=== PATIENT | male | born 1965 ===

== ENCOUNTER 2022-07-13 09:09 | Outpatient (CLI) | payer OTHER | END 2022-07-13 09:15 | disposition home or self-care (01) | LOC: RAD 09:09 | DX: M54.2 Cervicalgia (principal); M99.01 Segmental and somatic dysfunction of cervical region; M54.6 Pain in thoracic spine; M99.02 Segmental and somatic dysfunction of thoracic region; M54.50 Low back pain, unspecified; M99.03 Segmental and somatic dysfunction of lumbar region ==

== ENCOUNTER → 2024-01-11 06:57 | Outpatient (CLI) | payer OTHER ==
[2024-01-11 08:19] LABS: HEMATOCRIT 40.9 % (39.0-48.0); HEMOGLOBIN 14.2 g/dL (13-16.00); MEAN CELL VOLUME 96.2 fL (80.0-100.00); MEAN CORPUSCULAR HEMOGLOBIN 33.2 pg (27.00-32.0); MEAN CORPUSCULAR HGB CONC 34.6 g/dl (32.0-36.0); PLATELET COUNT 205 K/uL (150-450); RED BLOOD COUNT 4.26 M/uL (4.00-6.00); RED CELL DISTRIBUTION WIDTH 12.9 % (11.5-14.5)
[2024-01-11 09:42] LABS: % SATURACION 26.6 % (20-50); ALBUMIN 3.9 gm/dL (3.4-5.0); BILIRUBIN TOTAL 1.11 mg/dL (0.3-1.2); CALCIUM 8.9 mg/dL (8.5-10.1); CHOL HDL RATIO 2.4 (0-5.0); CREATININE SERUM 0.68 mg/dL (0.70-1.30); GFR 120.63; GLOBULINA 3.5 G/DL (2.4-3.5); POTASSIUM 4.27 mEq/L (3.5-5.1); TOTAL PROTEIN 7.4 gm/dL (6.4-8.2)
[2024-01-11 10:04] LABS: URINE BACTERIA 11.3 uL (0.0-1933); URINE RBC 3.5 uL (0.0-20.8)
[2024-01-11 10:09] LABS: URINE APPEARANCE CLEAR; URINE BILIRRUBIN NEGATIVE (NEGATIVE); URINE BLOOD NEGATIVE; URINE CAST 0.15 uL (0.0-1.40); URINE COLOR YELLOW; URINE EPITHELIAL CELLS 0.9 uL (0.0-38.8); URINE GLUCOSE NEGATIVE (NEGATIVE); URINE KETONE NEGATIVE (NEGATIVE); URINE PROTEIN NEGATIVE (NEGATIVE)
[2024-01-11 10:10] LABS: URINE LEUKOCYTE NEGATIVE; URINE NITRATE NEGATIVE; URINE UROBILINOGEN 0.2 E.U./dl
[2024-01-12 09:06] LABS: HEPATITIS B CORE IGG Negative (Negative); HEPATITIS C VIRUS ANTIBODY Non Reactive (Non Reactive)
[2024-01-12 13:05] LABS: CERULOPLASMIN 17.2 mg/dL (16.0-31.0); TRANSFERIN 315 mg/dL (177-329)
[2024-01-13 15:04] LABS: SMOOTH MUSCLE ANTIBODY 5 Units (0-19)
== END | disposition home or self-care (01) ==
LOC: LAB 06:57
DX: E11.65 Type 2 diabetes mellitus with hyperglycemia (principal); E78.5 Hyperlipidemia, unspecified; K74.00 Hepatic fibrosis, unspecified